=== PATIENT | male | born 1995 | race Two or more races ===

== ENCOUNTER 2024-04-12 10:00 | Emergency (ER) | payer OTHER ==
[~2024-04-12] VITALS: Ht 185.4 cm; Wt 100.7 kg
[2024-04-12 10:18] VITALS: TEMP 98.1
[2024-04-12 11:13] LABS: BASOPHILS # (AUTO) 0.1 K/uL (0.0-0.2); BASOPHILS % (AUTO) 1.2 % (0.0-2.0); EOSINOPHILS % (AUTO) 0.5 % (0.0-6.0); HEMATOCRIT 45 % (39-51); HEMOGLOBIN 15.1 g/dL (13.5-17.5); LYMPHOCYTES # (AUTO) 1.4 K/uL (0.8-4.8); LYMPHOCYTES % (AUTO) 28.4 % (20.0-44.0); MEAN CORPUSCULAR HEMOGLOBIN 30 PG (26.0-33.0); MEAN CORPUSCULAR HGB CONC 33 g/dl (31.0-36.0); MEAN CORPUSCULAR VOLUME 89 fL (80-96); MONOCYTES # (AUTO) 0.7 K/uL (0.1-1.30); MONOCYTES % (AUTO) 15.2 % (2.0-12.0); NEUTROPHILS # (AUTO) 2.7 K/uL (1.8-8.9); NEUTROPHILS % (AUTO) 54.7 % (43.0-81.0); PLATELET COUNT (AUTO) 155 K/uL (150-450); RED BLOOD CELL COUNT(AUTO) 5.07 MIL/uL (4.5-6.0); RED CELL DISTRIBUTION WIDTH 13.8 % (11.5-15.0); WHITE BLOOD COUNT (AUTO) 4.9 K/uL (4.3-11.0)
[2024-04-12 11:20] LABS: CREATININE 0.8 mg/dL (0.6-1.3); POTASSIUM 4.2 mmol/L (3.5-5.1)
[2024-04-12 11:25] LABS: INR 1.46 (0.91-1.10); PARTIAL THROMBOPLASTIN TIME 31.5 SEC (24.3-34.3); PROTHROMBIN TIME 15.1 SECS (9.2-11.1)
[2024-04-12 11:34] LABS: ALBUMIN 3.6 g/dL (3.4-5.0); BILIRUBIN,DIRECT 10.9 mg/dL (0.0-0.2); BILIRUBIN,TOTAL 13.2 mg/dL (0.2-1.0); TOTAL PROTEIN, SERUM 7.8 g/dL (6.4-8.2)
[2024-04-12 13:27] VITALS: BP 139/78; O2SAT 100
== END 2024-04-12 13:27 | disposition home or self-care (01) ==
LOC: ER 10:07
DX: K75.9 Inflammatory liver disease, unspecified (principal); R50.9 Fever, unspecified; R11.0 Nausea
CPT/HCPCS: 36415; 76705-TC; 80048-TC; 80076-TC; 83690-TC; 85025-TC; 85730-TC